=== PATIENT | male | born 1980 | race African-American/Black ===

== ENCOUNTER 2021-09-04 08:37 | Emergency (ER) | payer OTHER ==
[~2021-09-04] VITALS: Ht 180.3 cm; Wt 81.6 kg
[2021-09-04] MEDS ORDERED: KETO10TA2 PO (14:10)
[2021-09-04] MEDS ORDERED: AMOX-CLAV 875-1 EACH PO (14:10)
== END 2021-09-04 14:21 | disposition home or self-care (01) ==
LOC: ER 08:37
DX: R07.89 Other chest pain (principal); Z88.8 Allergy status to other drugs, medicaments and biological substances